=== PATIENT | male | born 1935 | race Caucasian/White ===

== ENCOUNTER → 2019-05-21 | Outpatient (CLI) | payer MEDICARE, OTHER ==
--- NOTE | 2019-05-21 14:43 | MRI ---
Study: MRI of the Left Foot. MRI of the Left Ankle. Indication: ANKLE PAIN Technique: Multiplanar, multi sequence MRI of the left foot and MRI of the left ankle were obtained without intravenous contrast. Comparison: None. Findings: Prior full-thickness tearing anterior talofibular ligament, calcaneofibular ligament, and deep deltoid ligament. Pronounced ossification at the expected location anterior talofibular ligament measuring up to 25 mm. Several smaller ossifications inferior to the medial malleolus. Prior sprains of the tibiofibular ligaments as well as of the spring ligament. Valgus angulation of the hindfoot. 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 Severe osteoarthritis also noted of the medial margin of the posterior subtalar joint with extensive subchondral cystic change of both articular surfaces as well as extensive medial joint line ganglion formation measuring up to 35 mm and extending into the tarsal tunnel. Pseudarthrosis between the inferior margin lateral malleolus and the adjacent superolateral margin of the calcaneus with subcortical cystic change. Associated lateral hindfoot impingement suspected high-grade tendinosis and longitudinal split tearing of the peroneus brevis and longus tendons adjacent to this site. No rupture. Trace retrocalcaneal bursal fluid. Low-grade Achilles tendinosis. Anterior tendons intact. Tenosynovitis medial tendons with insertional posterior tibialis tendinosis. No acute fracture or coalition. Multifocal ossification along the posterior tibiotalar joint. No rupture of the plantar fascia. Mild talonavicular joint osteoarthritis. Impression: Sequela of previous inversion injuries with full-thickness tearing anterior talofibular ligament and deep deltoid ligament as well as multiple prior ankle ligament sprains as above. Severe osteoarthritis of the lateral margins of the tibiotalar joint as well as the medial margins of the posterior subtalar joint. Associated valgus angulation of the hindfoot noted with findings which can be seen with lateral-impingement. High-grade tendinosis and longitudinal split tearing of the peroneal tendons. Additional findings as detailed above. Electronically signed by: Tai Deleon MD 05/21/2019 2:41 PM [employer]
== END ==
LOC: MRI 08:00
PROVIDERS: ATTEND Nurse Practitioner
DX: S93.432S Sprain of tibiofibular ligament of left ankle, sequela (principal); S93.422S Sprain of deltoid ligament of left ankle, sequela; M19.072 Primary osteoarthritis, left ankle and foot; M76.72 Peroneal tendinitis, left leg